=== PATIENT | male | born 1980 | race African-American/Black ===

== ENCOUNTER 2018-01-04 10:44 | Emergency (ER) | payer BC ==
[2018-01-04 14:54] VITALS: BP 128/81
--- NOTE | 2018-01-04 14:54 | ER Document Report ---
ED ENT - General Chief Complaint: Sore Throat Stated Complaint: SORE THROAT Time Seen by Provider: 01/04/18 14:48 Notes: 37-year-old brought to the emergency department chief complaint of sore throat and a rash and some diarrhea. Symptoms have been present for about 2 days. Seems to be getting worse. Denies any difficulty swallowing. Denies any high fevers, chills, sweats. Denies any severe headache or neck stiffness. TRAVEL OUTSIDE OF THE [place] IN LAST 30 DAYS: No - HPI Onset: Yesterday Onset/Duration: Gradual, Constant Severity: Mild Pain Level: 1 - Related Data Allergies/Adverse Reactions: Penicillins Adverse Reaction (Verified 01/04/18 10:46) Past Medical History - General Information source: Patient - Social History Smoking Status: Current Every Day Smoker Chew tobacco use (# tins/day): No Frequency of alcohol use: Occasional Drug Abuse: None Lives with: Family Family History: Reviewed & Not Pertinent Patient has suicidal ideation: No Patient has homicidal ideation: No - Medical History Medical History: Negative Renal/ Medical History: Denies: Hx Peritoneal Dialysis Review of Systems - Review of Systems Notes: Constitutional: denies: Chills, Diaphoresis, Fever, Malaise, Weakness EENT: denies: Eye discharge, Blurred vision, Tearing, Double vision, Nose congestion, Nose discharge, Throat swelling, Mouth pain. Patient does state that his throat is hurting. Cardiovascular: denies: Palpitations, Heart racing, Orthopnea, Dyspnea. denies : Chest pain Respiratory: denies: Cough, Hurts to breathe, Wheezing, Shortness of breath Gastrointestinal: denies: Abdominal pain, Diarrhea, Nausea, Vomiting, Black stools Genitourinary: denies: Burning, Dysuria, Discharge, Frequency, Flank pain, Hematuria Musculoskeletal: denies: Joint pain, Joint swelling, Muscle pain, Muscle stiffness, back pain Hematologic/Lymphatic: denies: Anemia, Easy bleeding, Easy bruising, Blood clots Neurological/Psychological: denies: Confusion, Dementia, Depression, Loss of consciousness Skin: Rash on his bilateral arms approximately 3 small bumps Physical Exam - Vital signs Vitals: Temp Pulse Resp BP Pulse Ox 97.9 F 73 16 138/95 H 98 01/04/18 11:15 01/04/18 11:15 01/04/18 11:15 01/04/18 11:15 01/04/18 11:15 Interpretation: Normal - General General appearance: Appears well, Alert - HEENT Head: Normocephalic, Atraumatic Eyes: Normal Pupils: PERRL Mucous membranes: Normal Pharynx: Normal Neck: Normal - Respiratory Respiratory status: No respiratory distress Chest status: Nontender Breath sounds: Normal Chest palpation: Normal - Cardiovascular Rhythm: Regular Heart sounds: Normal auscultation Murmur: No - Abdominal Inspection: Normal Distension: No distension Bowel sounds: Normal Tenderness: Nontender Organomegaly: No organomegaly - Extremities General upper extremity: Normal inspection, Nontender, Normal color, Normal ROM , Normal temperature General lower extremity: Normal inspection, Nontender, Normal color, Normal ROM , Normal temperature, Normal weight bearing. No: Carlos's sign - Skin Skin Temperature: Warm Skin Moisture: Dry Skin Color: Normal, Other - There are about 4 small red erythematous slightly raised bumps on the bilateral forearms. No involvement on the hands. No petechiae. Course - Re-evaluation Re-evalutation: 01/04/18 14:53 Rapid strep was negative. More likely this represents a coxsackievirus with rash sore throat and diarrhea. Will advise him to do conservative treatment. Return for worsening symptoms. - Vital Signs Vital signs: Temp Pulse Resp BP Pulse Ox 97.7 F 65 18 128/81 H 100 01/04/18 14:49 01/04/18 14:49 01/04/18 14:49 01/04/18 14:49 01/04/18 14:49 Discharge - Discharge Clinical Impression: Acute viral pharyngitis Condition: Good Disposition: HOME, SELF-CARE Instructions: Acetaminophen, Viral Syndrome ([facility]) Prescriptions: Ibuprofen [Motrin 800 mg Tablet] 800 mg PO Q8H PRN 10 Days #30 tab PRN Reason: For Pain Scale 3-4 Forms: Return to Work
== END 2018-01-04 15:11 | disposition home or self-care (01) ==
LOC: ER 10:44
DX: J02.9 Acute pharyngitis, unspecified (principal); B97.89 Other viral agents as the cause of diseases classified elsewhere; R21 Rash and other nonspecific skin eruption; R19.7 Diarrhea, unspecified; F17.200 Nicotine dependence, unspecified, uncomplicated
CPT/HCPCS: 87070; 87880; 99283